=== PATIENT | female | born 1990 | race Caucasian/White ===

== ENCOUNTER 2024-01-15 12:03 | Outpatient (CLI) | payer MEDICAID, SELFPAY ==
--- NOTE | 2024-01-15 12:15 | US_ITS ---
Patient: ELOINA CHO Facility:?[facility] Patient ID:?[id number] Site Patient ID:?[id number]. Site :?[id number] Study:?US-OB Pelvis OB TV-01/15/2024 12:43:46 PM Ordering Physician:?ISAIAH LEW CNM Final Report: INDICATION: Dating and viability. COMPARISON: None. TECHNIQUE: Transabdominal and transvaginal OB ultrasound. Findings: Single viable intrauterine gestation of 7 weeks and 1 day duration with an expected date of delivery 09/01/2024. heart rate 145 beats per minute and regular. Campus-rump length of 1 cm and the mean diameter of the gestational sac 2.8 cm. The yolk sac measures 2.7 mm in diameter and appears unremarkable. The right ovary measures 3.7 x 1.4 x 1.8 cm on the left ovary measures 4.3 x 2.5 x 2.9 cm. A 1.6 x 1.6 x 0.3 cm subchorionic hemorrhage to the left of the gestational sac. IMPRESSION: 1. Single viable intrauterine gestation of 7 weeks and 1 day duration with an expected date of delivery 09/01/2024. 2. heart rate 145 beats per minute and regular. 3. A 1.6 x 1.6 x 0.2 cm subchorionic hemorrhage to the left of the gestational sac. Dictated by Batsheva Garcia MD @ 01/16/2024 1:03:48 PM Signed by:?Batsheva Garcia MD @01/16/2024 1:03:48 PM (Electronic Signature)
== END 2024-01-15 12:04 | disposition home or self-care (01) ==
LOC: US 12:07
PROVIDERS: Visit Provider Advanced Practice Midwife
DX: Z34.91 Encounter for supervision of normal pregnancy, unspecified, first trimester (principal); O20.9 Hemorrhage in early pregnancy, unspecified; Z3A.01 Less than 8 weeks gestation of pregnancy
CPT/HCPCS: 76817; 86592; 86703; 86704; 86706; 86762; 86787; 86803; 86850; 86900; 86901; 87086; 87340

== ENCOUNTER 2024-02-16 10:05 | Outpatient (CLI) | payer MEDICAID, SELFPAY | END 2024-02-16 10:06 | disposition home or self-care (01) | LOC: NFLDREF 10:05 | PROVIDERS: Visit Provider Advanced Practice Midwife | DX: Z34.91 Encounter for supervision of normal pregnancy, unspecified, first trimester (principal) | CPT/HCPCS: 87491; 87591 ==

== ENCOUNTER 2024-06-15 10:29 | Outpatient (CLI) | payer MEDICARE, SELFPAY | END 2024-06-15 10:30 | disposition home or self-care (01) | LOC: NFLDREF 10:30 | PROVIDERS: Visit Provider Midwife | DX: Z34.93 Encounter for supervision of normal pregnancy, unspecified, third trimester (principal); Z3A.28 28 weeks gestation of pregnancy | CPT/HCPCS: 76816; 76817; 86592; 86850; J2791 ==

== ENCOUNTER 2024-07-20 07:48 | Outpatient (CLI) | payer MEDICARE, SELFPAY ==
--- NOTE | 2024-07-20 08:15 | CRLHL7_ITS ---
For Patients: As a result of the Century Cures Act, medical imaging exams and procedure reports are released immediately into your electronic medical record. You may view this report before your referring provider. If you have questions, please contact your health care provider. OB ULTRASOUND, GROWTH MALA by LMP: 09/01/2024. GA: 33w, 6d. Single. COMPARISON: 06/15/2024. INDICATION: Marginal cord insertion. CERVIX: Not visualized. POSITIONING: Vertex. AMNIOTIC FLUID: 5.7 cm SDP PLACENTA: Technique: Transabdominal. PLACENTA POSITION: Posterior, right wall. DOPPLER: heart rate: 176 bpm. Biometry: BPD: 8.4 cm. 33w, 4d, 39 percent. HC: 32.4 cm. 36w, 5d, 82 percent. AC: 32.1 cm. 36w, 0d, 96 percent. FL: 6.3 cm. 32w, 4d, 12 percent. FL/AC ratio: 19.61 percent. HC/AC ratio: 1.01. EFW: 2556 g. Weight: 5 lbs, 10 oz. age by this US: 34w, 5d. MALA by this US: 08/26/2024. Percentile by MALA: 76 percent. IMPRESSION: 1. Estimated weight is at the 76th percentile. 2. Abdominal circumference 96th percentile. Leoncio Goodrich M.D. Body/Diagnostic Radiologist [email or web address] SP/Dictated by: Leoncio Goodrich MD @ 07/20/2024 1:48:00 PM (Electronically Signed)
== END 2024-07-20 07:49 | disposition home or self-care (01) ==
LOC: US 07:49
PROVIDERS: Visit Provider Midwife
DX: Z34.93 Encounter for supervision of normal pregnancy, unspecified, third trimester (principal); Z3A.33 33 weeks gestation of pregnancy
CPT/HCPCS: 76816

== ENCOUNTER 2024-08-03 09:05 | Outpatient (CLI) | payer MEDICARE, SELFPAY | END 2024-08-03 09:06 | disposition home or self-care (01) | LOC: NFLDREF 08-04 14:56 | PROVIDERS: Visit Provider Advanced Practice Midwife | DX: Z34.93 Encounter for supervision of normal pregnancy, unspecified, third trimester (principal); O09.523 Supervision of elderly multigravida, third trimester; Z3A.35 35 weeks gestation of pregnancy | CPT/HCPCS: 87081; 87653 ==

== ENCOUNTER 2024-08-26 13:01 | Outpatient (CLI) | payer MEDICARE, SELFPAY ==
[2024-08-26 13:08] VITALS: PULSE 109; O2SAT 99
[2024-08-26 13:13] VITALS: PULSE 109; O2SAT 98
[2024-08-26 13:14] VITALS: BP 121/78; PULSE 111
[2024-08-26 13:47] LABS: Amnisure Rom* Negative
[2024-08-26 13:54] VITALS: RESP 14; TEMP 36.6
--- NOTE | 2024-08-26 14:14 | PC.OBNST ---
NST Note NST Note Start: 08/26/24 13:11 Freq: ONCE Status: Active Protocol: Document 08/26/24 14:11 [facility] (Rec: 08/26/24 14:14 [facility] Desktop) NST Note 5 Para (# of births) 4 EDC 09/01/24 Gestational Age In Weeks & Days 39 Weeks & 1 Days Patient Presented with Complaint(s) of Leaking fluid,Decreased movement Other Complaints DFM and leaking of fluid for 2 weeks Reactive Yes Appropriate for Gestational Age Yes RN Sophie Lux RN Date 08/26/24 Reactive Yes Appropriate for Gestational Age Yes GEE Lock RN Date 08/26/24 OB NST charge Yes Complete NST Note via Write Note Yes The provider's electronic signature indicates the NST is reactive/appropriate for gestational age. *Note to provider: If an addendum is required, open the patient's chart and click on the note under the Nurse/Allied Health tab.
== END 2024-08-26 14:07 | disposition home or self-care (01) ==
LOC: OB OUT 13:01 → OB 13:02
PROVIDERS: Visit Provider Midwife
DX: O47.1 False labor at or after 37 completed weeks of gestation (principal); O36.8130 Decreased fetal movements, third trimester, not applicable or unspecified; Z3A.39 39 weeks gestation of pregnancy
CPT/HCPCS: 59025; 84112; G0463

== ENCOUNTER 2024-08-30 10:28 | Outpatient (CLI) | payer MEDICARE, SELFPAY ==
[2024-08-31 09:12] LABS: Strep B DNA Probe Negative (Negative)
[2024-08-31 09:43] LABS: Strep B Susceptibility Needed? No
== END 2024-08-30 10:29 | disposition home or self-care (01) ==
LOC: NFLDREF 10:28
PROVIDERS: Visit Provider Advanced Practice Midwife
DX: Z34.93 Encounter for supervision of normal pregnancy, unspecified, third trimester (principal); Z3A.39 39 weeks gestation of pregnancy
CPT/HCPCS: 87081; 87653

== ENCOUNTER 2024-08-31 20:00 | Inpatient (IN) | payer MEDICARE, SELFPAY ==
[2024-08-31] VITALS (10 sets, daily range): BP systolic 121–130; BP diastolic 61–73; PULSE 80–120; RESP 16; TEMP 36.8; BMI 33.2
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
--- NOTE | 2024-08-31 23:04 | W.PM.OBVAGDE ---
OB Procedure Vag Delivery Mother Details Mother Details: The patient is a 33 year-old, 5, Para 4, admitted on 08/31/24 at 39.6 weeks gestation in spontaneous labor. : 5 Para: 5 Weeks Gestation: 39.6 Additional Details Amniotic Membrane Status: AROM Amniotic Membrane Rupture Date: 08/31/24 Amniotic Membrane Rupture Time: 21:24 Amniotic Membrane Fluid Description: Clear Analgesia/Anesthesia Type: None Waterbirth: Yes Pitcoin: No Intrapartal Events: None Delivery augmentation: rupture of membranes Labor Onset: 16:00 Complete: 22:15 Pushin:15 Heart: heart tones during second stage were intermittently monitored FHR 140's one deceleration heard during a contraction with quick return to baseline. Delivery Details Delivery Date: 08/31/24 Delivery Time: 22:25 Route of delivery: Gender: Male Viability: Alive; Heart Rate Present Position at Delivery: OA Delivery Details: 33?y.o?at 39.6 weeks.? Echo arrived from home with complaints of regular contractions which started at 1600 today. She wanted to defer a cervical exam on admission as she was shyam every 3 minutes and having pelvic pressure with the contractions. She desired a waterbirth and entered the tub and was coping well with contractions. She began to ask why it was taking so long and doubting her ability to continue. Offered at that time to check how dilated she was, she agreed and exam showed she was 9cm with a bulging bag. Had a discussion about R/B/A of waiting for SROM or AROM. She desired AROM and this was done showing clear fluid. ? ? She was assumed complete at 2215 when she began pushing.??She pushed in multiple positions effectively.? Spontaneous vaginal delivery at 2225 of?a viable?male infant.??Delivered in vertex OA position with posterior hand by face and a nuchal which was not reduced, was somersaulted through.??Shoulders delivered easily.?Nuchal cord times one and was rreduced right after delivery. Baby was lifted out of the water and mother turned from hands and knees to semi fowlers then baby was handed to mother for skin to skin. Spontaneous cry noted after some stimulation.??Cord?was clamped and cut after a 5+ minute delay.??Nose and mouth were bulb suctioned.? Shoulder dystocia: no? Nuchal cord: yes times 1? Meconium stained?fluid: no? Water : yes? ? ? 8 at 1 minute and 8 at 5 minutes.? Weight is pending. ? Placenta delivered spontaneously and?complete?at 2234 with a?3 vessel?cord.?? Bleeding controlled with fundal massage.? ? Lacerations:? 1st degree not bleeding and not repaired with shared decision making.? ? Bleeding?post delivery?was: moderate. ?The fundus was firm to palpation.? Blood loss: 600?mL.? Blood loss measurement type: QBL? ? ? Sponge,?lap?and needles counts are correct.? Mother and were stable after delivery.? 1 Minute Interval Total Score: 8 5 Minute Interval Total Score: 8 Additional Details Shoulder Dystocia: No Placenta Delivery Time: 22:34 Placental Delivery Description: Spontaneous Procedure Done: Global Blood Loss: 600 Laceration: Perineal - 1st Degree (not repaired, not bleeding) Blood Loss Measurement Type: QBL Bakri Used: No Sponge/Need Count Correct: Yes Cord Vessel Description: 3 Vessels, Nuchal Cord (times one) and Delivered through Event Summary Status: Mother and were stable after delivery. Disposition: floor
[2024-08-31] MEDS: ACETAMINOPHEN 500 MG TABLET 1000 MG PO (23:32)
[2024-09-01] VITALS (8 sets, daily range): BP systolic 106–124; BP diastolic 62–83; PULSE 89–117; RESP 16–22; TEMP 36.6–36.9; O2SAT 96–98
[2024-09-01] MEDS: IBUPROFEN 600 MG TABLET PO ×2 (04:27→20:57)
[2024-09-01] MEDS: DOCUSATE SODIUM 100 MG CAPSULE PO (08:02)
--- NOTE | 2024-09-01 08:09 | P.DS_ITS ---
DS: Providers Provider Date Seen: 09/01/24 Date of admission: 08/31/24 20:00 Primary care physician: Not a Local Provider Admitting Clinician: Ramu Sidhu CNM Attending Physician on discharge: Tammi Villavicencio CNM DS: Diagnosis Discharge Diagnosis (1) care and examination immediately after delivery: Status: Acute (2) Lactating mother: Status: Acute Exam Narrative: Exam Narrative: GENERAL APPEARANCE:? normal affect, alert, no distress MOOD:? appropriate CHEST:? clear to auscultation HEART:? regular rate and rhythm ABDOMEN:? soft, non-tender the uterine fundus is At Umbilicus, Midline and is appropriate for the stage of recovery. PERINEUM:? mild edema of the perineum, there is a Perineal Laceration,?1st degree, that is healing well. EXTREMITIES:? normal and no edema Const: Vital Signs, click to edit/add: Vital Signs - 24 hr 08/31/24 20:05 08/31/24 21:00 08/31/24 21:30 Temperature Pulse Rate 104 H 84 80 Pulse Rate [Pulse Oximeter] Respiratory Rate Blood Pressure 130/72 Blood Pressure [Ri ght Arm] Pulse Oximetry Oxygen Delivery Me thod 08/31/24 21:35 08/31/24 22:00 08/31/24 22:51 Temperature 98.2 F Pulse Rate 100 108 H Pulse Rate [Pulse Oximeter] Respiratory Rate 16 16 Blood Pressure 125/67 Blood Pressure [Ri ght Arm] Pulse Oximetry Oxygen Delivery Me thod 08/31/24 23:06 08/31/24 23:21 08/31/24 23:36 Temperature 98.3 F Pulse Rate 111 H 120 H 110 H Pulse Rate [Pulse Oximeter] Respiratory Rate Blood Pressure 121/61 123/68 124/73 Blood Pressure [Ri ght Arm] Pulse Oximetry Oxygen Delivery Me thod 08/31/24 23:51 09/01/24 00:06 09/01/24 00:21 Temperature Pulse Rate 120 H 117 H 111 H Pulse Rate [Pulse Oximeter] Respiratory Rate Blood Pressure 126/64 120/62 118/65 Blood Pressure [Ri ght Arm] Pulse Oximetry Oxygen Delivery Me thod 09/01/24 00:36 09/01/24 04:31 09/01/24 07:58 Temperature 98 F 98.2 F Pulse Rate 117 H Pulse Rate [Pulse Oximeter] 104 H 89 Respiratory Rate 20 16 Blood Pressure 115/64 Blood Pressure [Ri ght Arm] 124/82 110/76 Pulse Oximetry 96 98 Oxygen Delivery Me thod Room Air Room Air Documenting provider has reviewed patient's vital signs: yes OB - DS: Summary Hospital Course Hospital Course: Echo is a 33 y.o. G 5 P 5 who was admitted to L & D for spontaneous onset of labor. ?She had a NVD that was uncomplicated. The patient feels well. ?The pain is well controlled with current medications. ?She has no new complaints. ?She is breast feeding and reports things are going well. the patient has done well.? Vitals have been stable.? She has remained afebrile.? Has a good appetite, is tolerating a general diet. ?She is voiding without difficulty.? She is passing gas and has not had a bowel movement.? She is ambulating and denies any dizziness.? Has small amount of rubra lochia. She is planning paragard for prevention. She strongly desires discharge tonight at 24 hours. Problems: none plan: Discharge home with baby. Follow up in 2 weeks and 6 weeks. , may see if needed Hgb 11.3. Peripartum Data Infant delivery method: Vaginal Laceration description: Perineal - 1st Degree complications: none [place] Gender: Male Discharge Plan: Home Status at Discharge Functional status at discharge: independent ambulation Overall status at discharge: patient is progressing back to baseline Time Spent with Patient Time attestation: Total time spent providing and/or coordinating discharge services: Time spent: Less than 30 minutes Discharge Plan Discharge Disposition: Home, Self-Care Date of Admission: 08/31/24 20:00 Attending Provider on Discharge: Tammi Villavicencio Primary Care Provider: Provider,Not a Local Condition: Stable Anticipated Discharge Date/Time: 09/01/24 Discharge Medications: New docusate sodium 100 mg Capsule 100 mg PO DAILY Qty: 90 0RF ibuprofen 600 mg Tablet 600 mg PO Q6H PRNQty: 60 0RF acetaminophen 500 mg Tablet 1,000 mg PO Q6H PRNQty: 0 0RF Continued Classic 28 mg iron- 800 mcg tablet 1 tab PO DAILY omega-3 fatty acids 500 mg capsule 500 mg PO QDAY magnesium Tablet 1 tab PO DAILY Discontinued valacyclovir 500 mg tablet 500 mg PO BID Qty: 60 1RF acetaminophen [Tylenol Extra Strength] 500 mg tablet 500 mg PO Q6H PRN Discharge Orders: Discharge Order (Routine); Ordered 09/01/24 Ordered By: Tammi Villavicencio Patient Education: OB Over the Counter Medication Information, OB Vaginal/Breast Feeding Activity Level: Activity as Tolerated Discharge Diet: Regular Follow Up Appointments: [facility] [Provider Group] Forms: [facility] Info Instructions
[2024-09-01] MEDS: ACETAMINOPHEN 500 MG TABLET 1000 MG PO (16:58)
== END 2024-09-01 23:30 | disposition home or self-care (01) | DRG 807 ==
LOC: OB OUT 22:33 → OB 09-01 06:53
PROVIDERS: Admitting Provider Advanced Practice Midwife; Visit Provider Advanced Practice Midwife
DX: O43.193 Other malformation of placenta, third trimester (principal); Z37.0 Single live birth; O26.893 Other specified pregnancy related conditions, third trimester; Z67.31 Type AB blood, Rh negative; Z91.410 Personal history of adult physical and sexual abuse; Z20.828 Contact with and (suspected) exposure to other viral communicable diseases; O70.0 First degree perineal laceration during delivery; Z3A.39 39 weeks gestation of pregnancy
CPT/HCPCS: 86592; G0463; A9270

== ENCOUNTER 2024-09-06 14:29 | Outpatient (CLI) | payer MEDICARE, SELFPAY ==
--- NOTE | 2024-09-06 15:38 | P.LACCB_ITS ---
Consult Note - Mom Date of Visit Date of visit: 09/06/24 Reason for consultation: Assistance Needed and Low Milk Supply (history of low supply with first 4 children) Visit Code: Visit Patient's Information Phone number: [phone] : 5 Para: 5 Allergies Latex, Natural Rubber Allergy (Severe, Verified 08/30/24 09:40) Anaphylaxis ciprofloxacin Adverse Reaction (Intermediate, Verified 08/30/24 09:40) Vomiting Mother's medical history: Breast augmentation (after of first child, surg ángel for very small breasts) Mother's Medical History: Medical History (Updated 09/03/24 @ 00:00 by Background Daemon) Hx of vaginal delivery Blastomycosis ?B40.9 - Blastomycosis, unspecified (ICD-10) Anxiety and depression ?F41.9 - Anxiety disorder, unspecified (ICD-10) ?F32.A - Depression, unspecified (ICD-10) Delivery Information Delivery type: Vaginal (unmedicated water ) Gestational Age: 39+6 Gestational Weight For Age: AGA Weight: 3.96 kg Discharge Weight: 3.799 kg Percentage weight loss: 4.1 Baby's Information Baby's Age at Visit: 6 days Baby's Provider or Clinic: [facility] Jaundice: No Past Experience Past Experience: Yes Current Frequency of Day Feedings: every 3 hours Frequency of Night Feedings: every 3 hours Both Breasts: Yes Suck: strong Latch: wide, deep, very comfortable per mom Length of Time: 5-10 minutes Goals: as long as possible, but being realistic Pumping Pumping: No (has never worked for her in the past so choosing not to pump now) Supplementing EBM Supplement: No Formula Supplement: Yes (2-25. oz after ) Baby Elimination Number of Wet Diapers a Day: 5-6 Number of BM a Day: several a day, yellow in color Breast/Nipple Condition Breast Information: Breasts are symmetrical with rounded lower quadrants, intramammary distance is less than 1.5 inches. No erythema. Nipples are supple, everted prior to feeding. Breast Shape: Round Engorgement: No Maternal Nipple Condition - Left: Common Nipple Maternal Nipple Condition - Right: Common Nipple Sore Nipples: No Baby Assessment Skin: Normal Tongue/frenulum: Normal/elastic Palate: Average Lips: Relaxed and Symmetrical Jaw Alignment: Symmetrical Mucosa: [place], moist Onsite Observation Pre-Feed weight: 3.782 kg Post-Feed weight: 3.79 kg Milk Transferred (mL): 8 (4 ml from ea side after nursing 10 min ea breast) Position: Cradle Attachment/latch-on achieved: Easily Suck pattern: Suck burst and normal rest Swallow: Occasionally Behavior following feed: Alert, content Pre-Nursing Left Nipple: Within Normal Limits Pre-Nursing Right Nipple: Within Normal Limits Post-Nursing Left Nipple: Within Normal Limits Post-Nursing Right Nipple: Within Normal Limits Assessments/Interventions Assessments/Interventions: history: Nursed first baby for about 3-4 weeks, with no real milk supply despite feeding, pumping and supplementing Next 3 kids did a varying amount of feeding and pumping. Even with pumping, never got more than a 'mist of milk, even with Power Pumping. Wants to know she did all she could with this baby, but ready to accept she may be one of the women that just don't make milk despite trying everything. observation: Jose latches to the breast well, wide and deep with rhythmic suckling noted. Nurses for 10 minutes but minimal swallowing noted. Papie comes off the breast aftet 10 minutes. Mom able to express a drop of colostrum prior to . No real feeling of fullness, and no changes to the breast after nursing. Jose weighed before and after nursing on each breast; transferred 4 ml ea side. Discussed this with mom; discussed risks for low milk supply given history of augmentation as well as reason for augmentation (very small breasted) and possible insufficient glandular tissue. Mom trying an herbal supplement to see if this will help; discussed may take 7- 10 days to know for sure if it will help or not. Discussed if he nurses like this 8-10 times/day, he's getting about 2 oz total of her colostrum/breastmilk throughout the 24 hours. Mom to contemplate and decide how long she wants to continue; she enjoy the bonding and as long as she knows he's getting something she's thankful for that. She will call back if questions arise. Discussed breast compression while nursing to assist milk intake to baby and paced bottle feeding to help keep him coming to the breast. Education provided: Need for frequent stimulation/milk removal and Alternative feeding methods (SNS, cup, finger feeding, bottling) Follow-Up Suggested follow up: Appointment as needed Time Spent Time spent with patient (min): 75 (reviewing EMR and face to face with patient and ) Meds Home Medications and Allergies Home Medications ?Medication ?Instructions ?Recorded ?Confirmed ?Type magnesium 1 tab PO DAILY 01/15/24 08/31/24 History omega-3 fatty acids 500 mg capsule 500 mg PO QDAY 01/15/24 08/31/24 History vits no.126-ferrous fum 1 tab PO DAILY 01/15/24 08/31/24 History 28 mg iron-folic acid 800 mcg tablet (Classic ) Allergies Allergy/AdvReac Type Severity Reaction Status Date / Time Latex, Natural Rubber Allergy Severe Anaphylaxis Verified 08/30/24 09:40 ciprofloxacin AdvReac Intermediate Vomiting Verified 08/30/24 09:40
== END 2024-09-06 14:30 | disposition home or self-care (01) ==
LOC: OB LAC 14:30
PROVIDERS: Visit Provider Midwife
DX: Z39.1 Encounter for care and examination of lactating mother (principal)
CPT/HCPCS: G0463

== ENCOUNTER 2025-02-04 14:16 | Outpatient (CLI) | payer OTHER, SELFPAY | END 2025-02-04 14:17 | disposition home or self-care (01) | PROVIDERS: Visit Provider Obstetrics & Gynecology | DX: N93.9 Abnormal uterine and vaginal bleeding, unspecified (principal) | CPT/HCPCS: 84146; 84443 ==

== ENCOUNTER 2025-02-04 14:51 | Outpatient (CLI) | payer OTHER, SELFPAY ==
--- NOTE | 2025-02-04 15:00 | CRLHL7_ITS ---
For Patients: As a result of the Century Cures Act, medical imaging exams and procedure reports are released immediately into your electronic medical record. You may view this report before your referring provider. If you have questions, please contact your health care provider. INDICATION: Abnormal uterine bleeding COMPARISON: none TECHNIQUE: 2D whiting scale and color Doppler images were acquired of the pelvis using a transabdominal and transvaginal approach. FINDINGS: Sonographic images demonstrate a normal size and smooth outer contour of the uterus. Uterus measures 8.5 cm in length by 4.5 cm in AP diameter by 5.2 cm in transverse dimension. The myometrium has a normal uniform echotexture. The endometrial lining measures 7.7 mm in composite thickness. Small cysts are present within the endometrium. Cervical nabothian cysts noted. The right ovary measures 2.1 x 3.0 x 2.8 cm in size and the left ovary measures 1.7 x 2.5 x 1.4 cm. Collapsing right ovarian cyst measures 1.6 cm. Simple right paraovarian cyst measures 1.2 x 1.4 x 1.3 cm. The ovaries demonstrate normal arterial and venous blood flow on color Doppler analysis. There are no suspicious fluid collections within the cul-de-sac. IMPRESSION: Endometrial thickness 7.7 millimeters. No abnormal vascularity to suggest retained products. No endometrial fluid. Dictated by Jose Larry MD @ 02/07/2025 9:22:52 AM (Electronically Signed)
== END 2025-02-04 14:52 | disposition home or self-care (01) ==
LOC: US 14:52
PROVIDERS: Visit Provider Obstetrics & Gynecology
DX: N93.9 Abnormal uterine and vaginal bleeding, unspecified (principal); R93.89 Abnormal findings on diagnostic imaging of other specified body structures
CPT/HCPCS: 76830; 76856